=== PATIENT | male | born 1980 | race Caucasian/White ===

== ENCOUNTER 2019-06-11 15:01 | Emergency (ER) | payer BC, OTHER ==
[~2019-06-11] VITALS: Ht 175.3 cm; Wt 75.0 kg
[~2019-06-11 15:01] MED LIST: ACYC800T5 PO; GABA300C16 PO; HYDR-4011 PO; IBUP-1542 PO; IBUP800T48 PO
[2019-06-11 15:08] VITALS: Ht 175.3 cm; Wt 75.0 kg
[2019-06-11] MEDS ORDERED: morphine 4 MG/ML VIAL IV ONE (16:00)
[2019-06-11] MEDS ORDERED: ONDANSETRON 4 MG INJ IV ONE (16:00)
[2019-06-11 17:43] VITALS: BP 124/80; PULSE 78; RESP 16
== END 2019-06-11 17:43 | disposition home or self-care (01) ==
LOC: E/R 15:01
DX: S93.402A Sprain of unspecified ligament of left ankle, initial encounter (principal); F17.210 Nicotine dependence, cigarettes, uncomplicated; S19.9XXA Unspecified injury of neck, initial encounter; S39.92XA Unspecified injury of lower back, initial encounter; R94.02 Abnormal brain scan; R40.2142 Coma scale, eyes open, spontaneous, at arrival to emergency department; R40.2362 Coma scale, best motor response, obeys commands, at arrival to emergency department; R40.2252 Coma scale, best verbal response, oriented, at arrival to emergency department; V03.10XA Pedestrian on foot injured in collision with car, pick-up truck or van in traffic accident, initial encounter; Z59.0 Homelessness; Z21 Asymptomatic human immunodeficiency virus [HIV] infection status
CPT/HCPCS: 70450; 72125; 72131; 73610; 96374; 96375; J2270; J2405; Z7502